=== PATIENT | female | born 1960 | race African-American/Black ===

== ENCOUNTER 2017-04-13 12:42 | Emergency (ER) | payer MEDICAID ==
[~2017-04-13] VITALS: Ht 152.4 cm; Wt 90.7 kg
[2017-04-13 12:48] VITALS: BP 171/98
== END 2017-04-13 13:17 | disposition home or self-care (01) ==
LOC: ER 12:42
DX: J02.9 Acute pharyngitis, unspecified (principal); L04.0 Acute lymphadenitis of face, head and neck; K52.9 Noninfective gastroenteritis and colitis, unspecified

== ENCOUNTER 2017-10-06 10:20 | Inpatient (IN) | payer MEDICAID ==
[~2017-10-06] VITALS: Ht 152.4 cm; Wt 100.1 kg
[2017-10-06] MEDS ORDERED: ASPirin 81 mg TAB PO ONE ×2 (10:45→13:00)
[2017-10-06 11:27] LABS: Basophils # (auto) 0 uL; Eosinophils # (auto) 0.2 uL; Lymphocytes # (auto) 1.4 uL; Monocytes # (auto) 0.3 uL; Red Cell Distribution Width 18.3 % (11.8-14.3)
[2017-10-06 11:30] LABS: Basophils % (auto) 0.7 % (0.0-2.0); Eosinophils % (auto) 4.2 % (0.0-7.0); Hematocrit 36.4 % (36.0-46.0); Hemoglobin 11.5 g/dL (12.2-16.2); Lymphocytes % (auto) 28.2 % (10.0-50.0); Mean Corpuscular Hemoglobin 24.9 pg (28.0-32.0); Mean Corpuscular Hgb Conc. 31.5 g/dL (32.0-36.0); Mean Corpuscular Volume 79.1 fL (80.0-100.0); Monocytes % (auto) 5.9 % (0.0-12.0); Neutrophils # (auto) 3.1 uL; Nucleated Red Blood Cells % 0.1 %; Platelet Count (auto) 385 10^3/uL (140-450); White Blood Cell 5.1 10^3/uL (4.4-10.8)
[2017-10-06 11:48] LABS: Magnesium 2.3 mg/dL (1.6-2.6)
[2017-10-06 11:50] LABS: Albumin 3.4 g/dL (3.4-5.0); Bilirubin, Total 0.2 mg/dL (0.2-1.0); Calcium 8.9 mg/dL (8.5-10.1); Potassium 3.6 mmol/L (3.5-5.1); Total Protein 7.9 g/dL (6.4-8.2)
[2017-10-06] MEDS ORDERED: HYDROcodone-ACET 5/325MG TAB PO PRN (12:15)
[2017-10-06] MEDS ORDERED: DEXTROSE (50%) 50ML SYRG IV PRN (12:15)
[2017-10-06] MEDS ORDERED: TEMAZEPAM 15 MG CAP PO PRN (12:15)
[2017-10-06] MEDS ORDERED: NITROGLYCERIN 0.4 MG SL TAB SL PRN (12:15)
[2017-10-06] MEDS ORDERED: MORPHINE SULFATE 4 MG/ML SYR/VIAL IV PRN (12:15)
[2017-10-06] MEDS ORDERED: ACETAMINOPHEN 500 MG TAB PO PRN (12:15)
[2017-10-06] MEDS ORDERED: LORazepam 0.5 MG TAB PO PRN (12:15)
[2017-10-06] MEDS ORDERED: PROMETHAZINE HCL 25 MG/ML 1ML IV PRN (12:15)
[2017-10-06] MEDS ORDERED: ALBUTEROL SULF 2.5 MG/0.5ML(0.5%) NEB SOLN NEB PRN (12:15)
[2017-10-06] MEDS ORDERED: ENOXAPARIN SOD 40 MG/0.4 ML SYRINGE SC ONE (13:00)
[2017-10-06] MEDS ORDERED: NITROGLYCERIN 0.2MG/HR TOPICAL PATCH TD ONE (13:00)
[2017-10-06] MEDS ORDERED: PANTOPRAZOLE 40 MG TAB PO ONE (13:00)
[2017-10-06] MEDS ORDERED: METOPROLOL TARTRATE 25 MG TAB PO ONE (13:00)
[2017-10-06] MEDS: SODIUM CHLORIDE 0.9% 1,000 ML IV SCH (13:23)
[2017-10-06 13:28] LABS: CRP High Sensitivity 0.67 mg/dL (< 0.3)
[2017-10-06] MEDS: amLODIPine BESYLATE 5 MG TAB PO SCH (14:27)
[2017-10-06] MEDS: ACCU-CHEK COMFORT CURVE STRIP VI SCH ×2 (17:30→22:27)
[2017-10-06] MEDS: InsuLIN REG 1unit/0.01ml Soln (100units/ml) SC SCH ×2 (17:30→22:00)
[2017-10-06] MEDS ORDERED: ALBUAER3 IN (18:35)
[2017-10-06] MEDS ORDERED: LANS30CA63 PO (18:35)
[2017-10-06] MEDS ORDERED: IRBE300T46 PO (18:35)
[2017-10-06] MEDS ORDERED: ACLI1AER2 IN (18:35)
[2017-10-06] MEDS ORDERED: HYDR25TA4 PO (18:35)
[2017-10-06] MEDS ORDERED: AMLO5TAB2 PO (18:35)
[2017-10-06 19:31] VITALS: BP 167/77
[2017-10-06 20:00] VITALS: BP 160/79
[2017-10-06] MEDS: MORPHINE SULFATE 4 MG/ML SYR/VIAL IV PRN (21:09)
[2017-10-06 22:00] VITALS: BP 160/79
[2017-10-06] MEDS ORDERED: ATORVASTATIN 20 MG TAB PO SCH (22:00)
[2017-10-06] MEDS: METOPROLOL TARTRATE 25 MG TAB PO SCH (22:27)
[2017-10-07] MEDS: SODIUM CHLORIDE 0.9% 1,000 ML IV SCH ×2 (01:21→14:46)
[2017-10-07 05:00] VITALS: BP 158/75
[2017-10-07] MEDS: MORPHINE SULFATE 4 MG/ML SYR/VIAL IV PRN (05:01)
[2017-10-07 06:47] LABS: Cholesterol 212 mg/dL (< 200); HDL Cholesterol 60 mg/dL (40-59); LDL Cholesterol 129 mg/dL (< 100); Triglycerides 116 mg/dL (< 150)
[2017-10-07] MEDS: InsuLIN REG 1unit/0.01ml Soln (100units/ml) SC SCH ×3 (06:48→17:00)
[2017-10-07] MEDS: ACCU-CHEK COMFORT CURVE STRIP VI SCH ×3 (06:49→17:00)
[2017-10-07 09:00] VITALS: BP 139/73
[2017-10-07] MEDS: amLODIPine BESYLATE 5 MG TAB PO SCH (09:27)
[2017-10-07] MEDS: METOPROLOL TARTRATE 25 MG TAB PO SCH (09:28)
[2017-10-07] MEDS ORDERED: NITROGLYCERIN 0.2MG/HR TOPICAL PATCH TD SCH (10:00)
[2017-10-07] MEDS ORDERED: PANTOPRAZOLE 40 MG TAB PO SCH (10:00)
[2017-10-07] MEDS ORDERED: ENOXAPARIN SOD 40 MG/0.4 ML SYRINGE SC SCH (10:00)
[2017-10-07] MEDS ORDERED: ASPirin 81 mg TAB PO SCH (10:00)
[2017-10-07 13:00] VITALS: BP 155/88
[2017-10-07 13:59] VITALS: BP 138/71
[2017-10-07 16:43] VITALS: BP 154/84
[2017-10-07 17:01] VITALS: BP 154/85
== END 2017-10-07 17:30 | disposition home or self-care (01) | DRG 201 ==
LOC: ER 10:20 → TELE 10:21 → TELE-CENTR 18:02
PROVIDERS: ADMIT Internal Medicine; ATTEND Internal Medicine
DX: I47.1 Supraventricular tachycardia (principal); I24.9 Acute ischemic heart disease, unspecified; D68.69 Other thrombophilia; E87.8 Other disorders of electrolyte and fluid balance, not elsewhere classified; E11.65 Type 2 diabetes mellitus with hyperglycemia; T50.2X5A Adverse effect of carbonic-anhydrase inhibitors, benzothiadiazides and other diuretics, initial encounter; E04.1 Nontoxic single thyroid nodule; I10 Essential (primary) hypertension; J44.9 Chronic obstructive pulmonary disease, unspecified; I16.0 Hypertensive urgency; Z93.2 Ileostomy status; Z90.710 Acquired absence of both cervix and uterus; Z90.49 Acquired absence of other specified parts of digestive tract; Z79.899 Other long term (current) drug therapy; Y92.89 Other specified places as the place of occurrence of the external cause; Z90.89 Acquired absence of other organs; Z87.891 Personal history of nicotine dependence; Z88.8 Allergy status to other drugs, medicaments and biological substances
CPT/HCPCS: 36415; 71046; 80053; 80061; 82550; 82962; 83036; 83735; 83880; 84439; 84443; 84484; 85025; 85379; 85652; 86141; 93005; 93306; 94761; 96360; 96372

== ENCOUNTER 2021-02-07 08:21 | Inpatient (IN) | payer MEDICAID ==
[~2021-02-07] VITALS: Ht 152.4 cm; Wt 110.0 kg
[~2021-02-07 08:21] MED LIST: ACLI1AER2 IN; ALBUAER3 IN; ASPI-543 PO; CETI10TA80 PO; EST0625T PO; FLUT110A INH; FURO40TA4 PO; IRBE300T43 PO; LANS30CA57 PO; METO25TA5 PO; POTA10TA51 PO
[2021-02-07 09:19] LABS: Basophils # (auto) 0.1 10 ^3/uL (0-0.2); Eosinophils # (auto) 0 10 ^3/uL (0-0.8)
[2021-02-07 09:20] LABS: Basophils % (auto) 0.5 % (0.0-2.0); Hematocrit 29.7 % (36.0-46.0); Hemoglobin 9.2 g/dL (12.2-16.2); Lymphocytes # (auto) 1.8 10 ^3/uL (0.4-5.4); Mean Corpuscular Hemoglobin 21.9 pg (28.0-32.0); Mean Corpuscular Hgb Conc. 31.1 g/dL (32.0-36.0); Mean Corpuscular Volume 70.4 fL (80.0-100.0); Monocytes # (auto) 1.3 10 ^3/uL (0-1.3); Monocytes % (auto) 9.4 % (0.0-12.0); Neutrophils # (auto) 10.7 10 ^3/uL (1.6-8.6); Neutrophils % (auto) 77.1 % (37.0-80.0); Nucleated Red Blood Cells % 0.2 %; Red Blood Cells 4.21 10^6/uL (4.0-5.20); White Blood Cell 13.9 10^3/uL (4.4-10.8)
[2021-02-07 09:28] LABS: Red Cell Distribution Width 20.7 % (11.8-14.3)
[2021-02-07 09:29] LABS: Anion Gap 8 (5-15); Calcium 8.9 mg/dL (8.5-10.1); Carbon Dioxide 27 mmol/L (21-32); Chloride 104 mmol/L (98-107); Glucose 226 mg/dL (74-106); Potassium 3.3 mmol/L (3.5-5.1); Sodium 139 mmol/L (136-145)
[2021-02-07] MEDS ORDERED: MORPHINE SULF INJ 2 MG/ML SYRINGE 1ML ONE (09:32)
[2021-02-07 09:42] LABS: Alanine Aminotransferase 29 U/L (13-56); Alkaline Phosphatase 118 U/L (45-117); Aspartate Aminotransferase 23 U/L (15-37); BUN/Creatinine Ratio 27.7; Bilirubin, Total 0.3 mg/dL (0.2-1.0); Blood Urea Nitrogen 33 mg/dL (7-18); GFR African American 59 mL/min; GFR Non-African American 49 mL/min; Total Protein 7.6 g/dL (6.4-8.2)
[2021-02-07] MEDS ORDERED: SODIUM CHLORIDE 0.9% 1,000 ML IV ONE (13:45)
[2021-02-07] MEDS ORDERED: FUROSEMIDE 40 MG/4 ML VIAL IV ONE (13:45)
[2021-02-07] MEDS ORDERED: SPIRONOLACTONE 25 MG TAB PO ONE (13:45)
[2021-02-07] MEDS ORDERED: POTASSIUM EFFERVESENT TAB 25 MEQ PO ONE (14:45)
[2021-02-07] MEDS ORDERED: NITROGLYCERIN 0.4 MG SL TAB SL PRN (14:45)
[2021-02-07] MEDS ORDERED: MORPHINE SULF INJ 2 MG/ML SYRINGE 1ML IV PRN ×2 (14:45→15:45)
[2021-02-07 15:28] LABS: INR 1.09 (0.9-1.15); Partial Thromboplastin Time 22.4 sec (23.0-31.2)
[2021-02-07] MEDS ORDERED: ACETAMINOPHEN 500 MG TAB PO PRN (15:45)
[2021-02-07] MEDS ORDERED: PROMETHAZINE HCL 25 MG/ML 1ML IV PRN (15:45)
[2021-02-07] MEDS ORDERED: levoFLOXacin 500MG 100 ML IV ONE (15:45)
[2021-02-07] MEDS ORDERED: ALBUTEROL SULF 2.5 MG/0.5ML(0.5%) NEB SOLN NEB PRN (15:45)
[2021-02-07] MEDS ORDERED: DEXTROSE (50%) 50ML SYRG IV PRN (15:45)
[2021-02-07] MEDS ORDERED: LACTULOSE 20Gm/30ML SOLN PO PRN (15:45)
[2021-02-07 16:29] LABS: Urine Bacteria FEW /hpf (None Seen); Urine Blood Negative /uL (Negative); Urine Specific Gravity 1.025 (1.001-1.035); Urine WBC 1 /hpf (0 - 5)
[2021-02-07 16:42] LABS: Alcohol, Urine < 3.0 mg/dL (0-10); Amphetamine Screen, Urine NEGATIVE (NEGATIVE); Barbiturate Scree,Urine NEGATIVE (NEGATIVE); Benzodiazephine Screen, Urine NEGATIVE (NEGATIVE); Cannabinoid Screen, Urine NEGATIVE (NEGATIVE); Cocaine Screen, Urine NEGATIVE (NEGATIVE); Phencyclidine Screen, Urine NEGATIVE (NEGATIVE)
[2021-02-07 16:50] LABS: Opiate Scree,Urine POSITIVE (NEGATIVE)
[2021-02-07] MEDS: InsuLIN REG 1unit/0.01ml Soln (100units/ml) SC SCH ×2 (17:00→22:07)
[2021-02-07] MEDS: ACCU-CHEK COMFORT CURVE STRIP VI SCH ×2 (17:34→21:59)
[2021-02-07 18:00] VITALS: BP 109/85
[2021-02-07 18:03] VITALS: BP 109/85
[2021-02-07] MEDS: IPRATROPIUM BROM 0.5 MG/2.5ML INH SOL NEB SCH (19:10)
[2021-02-07] MEDS: ALBUTEROL SULF 2.5 MG/0.5ML(0.5%) NEB SOLN NEB SCH (19:10)
[2021-02-07] MEDS ORDERED: SUCR1TAB PO (19:11)
[2021-02-07] MEDS ORDERED: LEVO25TA6 PO (19:11)
[2021-02-07] MEDS ORDERED: GLIP5TAB12 PO (19:11)
[2021-02-07] MEDS ORDERED: BECL80AE11 IN (19:11)
[2021-02-07] MEDS ORDERED: ATOR20TA50 PO (19:11)
[2021-02-07] MEDS ORDERED: POM (19:14)
[2021-02-07 21:09] VITALS: BP 109/85
[2021-02-07 21:55] VITALS: BP 124/71
[2021-02-07] MEDS: CARVEDILOL 3.125 MG TAB PO SCH (21:57)
[2021-02-07] MEDS: SODIUM CHLOR 0.9% PF (SALINE LOCK) 10ML VIAL/SYR IV SCH (21:58)
[2021-02-07] MEDS: ATORVASTATIN 20 MG TAB PO SCH (21:58)
[2021-02-07] MEDS: traMADol HCL 50 MG TAB PO PRN (21:58)
[2021-02-07] MEDS: APIXABAN 5 MG TAB PO SCH (21:58)
[2021-02-07] MEDS: FAMOTIDINE 20 MG TAB PO SCH (21:58)
[2021-02-07] MEDS: CLINDAMYCIN 600MG IV 50 ML IV SCH (21:59)
[2021-02-08] MEDS: IPRATROPIUM BROM 0.5 MG/2.5ML INH SOL NEB SCH ×4 (00:18→18:46)
[2021-02-08] MEDS: ALBUTEROL SULF 2.5 MG/0.5ML(0.5%) NEB SOLN NEB SCH ×4 (00:18→18:46)
[2021-02-08 05:01] VITALS: BP 105/47
[2021-02-08] MEDS: SODIUM CHLOR 0.9% PF (SALINE LOCK) 10ML VIAL/SYR IV SCH ×3 (05:51→22:03)
[2021-02-08] MEDS: CLINDAMYCIN 600MG IV 50 ML IV SCH ×3 (05:51→22:02)
[2021-02-08] MEDS: ACCU-CHEK COMFORT CURVE STRIP VI SCH ×4 (06:49→22:17)
[2021-02-08] MEDS: InsuLIN REG 1unit/0.01ml Soln (100units/ml) SC SCH ×4 (06:50→22:18)
[2021-02-08 09:00] VITALS: BP 108/68
[2021-02-08] MEDS: CARVEDILOL 3.125 MG TAB PO SCH ×2 (09:47→22:03)
[2021-02-08] MEDS: FUROSEMIDE 40 MG/4 ML VIAL IV SCH ×2 (09:47→10:04)
[2021-02-08] MEDS: ENALAPRIL MALEATE 2.5 MG TAB PO SCH (09:48)
[2021-02-08] MEDS: levoFLOXacin 500MG 100 ML IV SCH (09:55)
[2021-02-08] MEDS: ASPirin 81 mg TAB PO SCH (09:55)
[2021-02-08] MEDS: APIXABAN 5 MG TAB PO SCH ×2 (09:55→22:03)
[2021-02-08] MEDS: FAMOTIDINE 20 MG TAB PO SCH ×2 (09:55→22:02)
[2021-02-08] MEDS: POTASSIUM CHL 20 Meq TABLET PO SCH (09:55)
[2021-02-08] MEDS ORDERED: APIXABAN 5 MG TAB PO ONE (11:45)
[2021-02-08 13:00] VITALS: BP 99/45
[2021-02-08 17:00] VITALS: BP 95/55
[2021-02-08 22:00] VITALS: BP 137/69
[2021-02-08] MEDS: ATORVASTATIN 20 MG TAB PO SCH (22:02)
[2021-02-09] MEDS: IPRATROPIUM BROM 0.5 MG/2.5ML INH SOL NEB SCH ×5 (00:26→18:29)
[2021-02-09] MEDS: ALBUTEROL SULF 2.5 MG/0.5ML(0.5%) NEB SOLN NEB SCH ×5 (00:26→18:29)
[2021-02-09 05:00] VITALS: BP 134/70
[2021-02-09] MEDS: CLINDAMYCIN 600MG IV 50 ML IV SCH ×3 (05:58→21:05)
[2021-02-09] MEDS: SODIUM CHLOR 0.9% PF (SALINE LOCK) 10ML VIAL/SYR IV SCH ×3 (05:58→21:05)
[2021-02-09] MEDS: ACCU-CHEK COMFORT CURVE STRIP VI SCH ×4 (06:46→21:22)
[2021-02-09] MEDS: InsuLIN REG 1unit/0.01ml Soln (100units/ml) SC SCH ×4 (06:46→21:21)
[2021-02-09] MEDS: POTASSIUM CHL 20 Meq TABLET PO SCH (08:48)
[2021-02-09] MEDS: FUROSEMIDE 40 MG/4 ML VIAL IV SCH (08:48)
[2021-02-09] MEDS: ASPirin 81 mg TAB PO SCH (08:49)
[2021-02-09] MEDS: FAMOTIDINE 20 MG TAB PO SCH ×2 (08:49→21:21)
[2021-02-09] MEDS: APIXABAN 5 MG TAB PO SCH ×2 (08:49→21:04)
[2021-02-09] MEDS: levoFLOXacin 500MG 100 ML IV SCH (08:49)
[2021-02-09] MEDS: traMADol HCL 50 MG TAB PO PRN (08:56)
[2021-02-09] MEDS: CARVEDILOL 3.125 MG TAB PO SCH ×2 (08:56→22:06)
[2021-02-09] MEDS: ENALAPRIL MALEATE 2.5 MG TAB PO SCH (08:56)
[2021-02-09 09:00] VITALS: BP 137/84
[2021-02-09 13:00] VITALS: BP 122/67
[2021-02-09 17:00] VITALS: BP 127/69
[2021-02-09] MEDS: ATORVASTATIN 20 MG TAB PO SCH (21:04)
[2021-02-09 22:00] VITALS: BP 125/69
[2021-02-10] MEDS: IPRATROPIUM BROM 0.5 MG/2.5ML INH SOL NEB SCH ×4 (00:22→19:50)
[2021-02-10] MEDS: ALBUTEROL SULF 2.5 MG/0.5ML(0.5%) NEB SOLN NEB SCH ×4 (00:22→19:50)
[2021-02-10] MEDS: SODIUM CHLOR 0.9% PF (SALINE LOCK) 10ML VIAL/SYR IV SCH ×2 (05:48→12:35)
[2021-02-10] MEDS: CLINDAMYCIN 600MG IV 50 ML IV SCH ×2 (05:48→13:29)
[2021-02-10 06:00] VITALS: BP 119/58
[2021-02-10] MEDS: ACCU-CHEK COMFORT CURVE STRIP VI SCH ×3 (06:28→16:42)
[2021-02-10] MEDS: InsuLIN REG 1unit/0.01ml Soln (100units/ml) SC SCH ×3 (06:28→16:42)
[2021-02-10 09:01] VITALS: BP 144/66
[2021-02-10] MEDS: levoFLOXacin 500MG 100 ML IV SCH (09:15)
[2021-02-10] MEDS: ASPirin 81 mg TAB PO SCH (09:15)
[2021-02-10] MEDS: ENALAPRIL MALEATE 2.5 MG TAB PO SCH (09:16)
[2021-02-10] MEDS: FAMOTIDINE 20 MG TAB PO SCH (09:16)
[2021-02-10] MEDS: FUROSEMIDE 40 MG/4 ML VIAL IV SCH (09:17)
[2021-02-10] MEDS: CARVEDILOL 3.125 MG TAB PO SCH (09:18)
[2021-02-10] MEDS: APIXABAN 5 MG TAB PO SCH (09:18)
[2021-02-10] MEDS: POTASSIUM CHL 20 Meq TABLET PO SCH (09:19)
[2021-02-10 10:49] VITALS: BP 140/60
[2021-02-10 12:26] VITALS: BP 113/65
== END 2021-02-10 17:15 | disposition home or self-care (01) | DRG 720 ==
LOC: ER 08:21 → EDBD 08:21 → TELE-WESTW 14:45 → ER 17:37
PROVIDERS: ADMIT Internal Medicine; ATTEND Family Medicine
DX: A41.9 Sepsis, unspecified organism (principal); I26.99 Other pulmonary embolism without acute cor pulmonale; J96.01 Acute respiratory failure with hypoxia; I50.43 Acute on chronic combined systolic (congestive) and diastolic (congestive) heart failure; J15.6 Pneumonia due to other Gram-negative bacteria; E11.21 Type 2 diabetes mellitus with diabetic nephropathy; I11.0 Hypertensive heart disease with heart failure; Z20.822 Contact with and (suspected) exposure to COVID-19; J44.0 Chronic obstructive pulmonary disease with (acute) lower respiratory infection; E44.1 Mild protein-calorie malnutrition; D63.8 Anemia in other chronic diseases classified elsewhere; E11.22 Type 2 diabetes mellitus with diabetic chronic kidney disease; E87.6 Hypokalemia; I25.10 Atherosclerotic heart disease of native coronary artery without angina pectoris; E11.65 Type 2 diabetes mellitus with hyperglycemia; E66.9 Obesity, unspecified; N18.9 Chronic kidney disease, unspecified; J44.1 Chronic obstructive pulmonary disease with (acute) exacerbation; J98.11 Atelectasis; Z95.0 Presence of cardiac pacemaker; Z93.3 Colostomy status; Z79.899 Other long term (current) drug therapy; Z79.891 Long term (current) use of opiate analgesic; Z79.01 Long term (current) use of anticoagulants; Z90.49 Acquired absence of other specified parts of digestive tract; Z90.710 Acquired absence of both cervix and uterus; Z87.891 Personal history of nicotine dependence; Z80.3 Family history of malignant neoplasm of breast; Z80.1 Family history of malignant neoplasm of trachea, bronchus and lung; Z91.040 Latex allergy status; Z88.8 Allergy status to other drugs, medicaments and biological substances; Z79.82 Long term (current) use of aspirin; Z68.42 Body mass index [BMI] 45.0-49.9, adult; E03.9 Hypothyroidism, unspecified; E78.5 Hyperlipidemia, unspecified
CPT/HCPCS: 36415; 71046; 80053; 80307; 81001; 82550; 82962; 83036; 83735; 83880; 84443; 84484; 85025; 85049; 85379; 85610; 85652; 85730; 86141; 87081; 87426; 93005; 93306; 94640; 96365; 96375; G0378; J1815; J1956; J3490

== ENCOUNTER 2022-02-23 12:36 | Inpatient (IN) | payer MEDICAID ==
[~2022-02-23] VITALS: Ht 162.6 cm; Wt 109.0 kg
[~2022-02-23 12:36] MED LIST changes: -ASPI-543 PO; +ATOR20TA50 PO; +BECL80AE11 IN; -CETI10TA80 PO; -EST0625T PO; -FLUT110A INH; +GLIP5TAB12 PO; -IRBE300T43 PO; +LEVO25TA6 PO; +POM; -POTA10TA51 PO; +SUCR1TAB PO
[2022-02-23] MEDS ORDERED: methylPREDNISolone SOD SUCC 125 MG/2 ML VL IV ONE (13:00)
[2022-02-23] MEDS ORDERED: IOHEXOL 350 MG/ML 100ML IJ ONE ×2 (13:20→16:17)
[2022-02-23 14:28] LABS: Calcium 8.8 mg/dL (8.5-10.1); Potassium 4.5 mmol/L (3.5-5.1)
[2022-02-23 14:33] LABS: BUN/Creatinine Ratio 14.6; Bilirubin, Total 0.2 mg/dL (0.2-1.0); Magnesium 2.2 mg/dL (1.6-2.6); Total Protein 7.9 g/dL (6.4-8.2)
[2022-02-23 15:47] LABS: Basophils # (auto) 0.1 10 ^3/uL (0-0.2); Eosinophils # (auto) 0.1 10 ^3/uL (0-0.8); Eosinophils % (auto) 1.5 % (0.0-7.0); Hematocrit 31.3 % (36.0-46.0); Hemoglobin 9.4 g/dL (12.2-16.2); Lymphocytes # (auto) 1.3 10 ^3/uL (0.4-5.4); Lymphocytes % (auto) 23.3 % (10.0-50.0); Mean Corpuscular Hemoglobin 20.7 pg (28.0-32.0); Mean Corpuscular Hgb Conc. 30.1 g/dL (32.0-36.0); Mean Corpuscular Volume 68.7 fL (80.0-100.0); Monocytes # (auto) 0.4 10 ^3/uL (0-1.3); Monocytes % (auto) 7.7 % (0.0-12.0); Neutrophils # (auto) 3.6 10 ^3/uL (1.6-8.6); Neutrophils % (auto) 66.5 % (37.0-80.0); Nucleated Red Blood Cells % 0.2 %; Red Blood Cells 4.55 10^6/uL (4.0-5.20); White Blood Cell 5.5 10^3/uL (4.4-10.8)
[2022-02-23 15:50] LABS: Red Cell Distribution Width 21.1 % (11.8-14.3)
[2022-02-23 21:04] LABS: Urine Bacteria NONE SEEN /hpf (None Seen); Urine Blood Negative /uL (Negative); Urine Mucus FEW (None Seen); Urine WBC 1 /hpf (0 - 5)
[2022-02-23 21:11] LABS: Urine Specific Gravity > 1.050 (1.001-1.035)
[2022-02-23] MEDS ORDERED: ACETAMINOPHEN 325 MG TAB PO PRN (21:15)
[2022-02-23] MEDS ORDERED: NITROGLYCERIN 0.4 MG SL TAB SL PRN ×2 (21:15→23:00)
[2022-02-23] MEDS ORDERED: MORPHINE SULFATE INJ 2 MG/ml SYRG IV PRN ×2 (21:15→23:00)
[2022-02-23] MEDS ORDERED: DEXTROSE (50%) 50ML SYRG IV PRN (21:15)
[2022-02-23] MEDS ORDERED: ONDANSETRON HCL 4 MG/2 ML VIAL IV PRN (21:15)
[2022-02-23] MEDS ORDERED: ALBUTEROL SULF 2.5 MG/0.5ML(0.5%) NEB SOLN NEB PRN (21:15)
[2022-02-23] MEDS ORDERED: cloNIDine HCL 0.1 MG TAB PO PRN (21:15)
[2022-02-23 21:34] VITALS: BP 164/70
[2022-02-23] MEDS ORDERED: TEMAZEPAM 15 MG CAP PO PRN (22:00)
[2022-02-23] MEDS: ATORVASTATIN 20 MG TAB PO SCH (22:21)
[2022-02-23] MEDS: ACCU-CHEK COMFORT CURVE STRIP VI SCH (22:26)
[2022-02-23] MEDS: InsuLIN REG 1unit/0.01ml Soln (100units/ml) SC SCH (22:32)
[2022-02-24 04:39] LABS: Basophils # (auto) 0 10 ^3/uL (0-0.2); Eosinophils # (auto) 0 10 ^3/uL (0-0.8); Lymphocytes # (auto) 0.6 10 ^3/uL (0.4-5.4)
[2022-02-24 04:42] LABS: Basophils % (auto) 0.3 % (0.0-2.0); Hemoglobin 9.3 g/dL (12.2-16.2); Mean Corpuscular Hemoglobin 20.5 pg (28.0-32.0); Mean Corpuscular Hgb Conc. 29.8 g/dL (32.0-36.0); Mean Corpuscular Volume 68.6 fL (80.0-100.0); Monocytes # (auto) 0.1 10 ^3/uL (0-1.3); Monocytes % (auto) 0.7 % (0.0-12.0); Neutrophils # (auto) 6.4 10 ^3/uL (1.6-8.6); Red Blood Cells 4.53 10^6/uL (4.0-5.20)
[2022-02-24 04:46] LABS: Red Cell Distribution Width 21.3 % (11.8-14.3)
[2022-02-24] MEDS: InsuLIN REG 1unit/0.01ml Soln (100units/ml) SC SCH ×4 (07:32→21:49)
[2022-02-24] MEDS: LEVOTHYROXINE SODIUM 25 MCG TAB PO SCH (07:32)
[2022-02-24] MEDS: ACCU-CHEK COMFORT CURVE STRIP VI SCH ×4 (07:33→22:00)
[2022-02-24 09:00] VITALS: BP 145/57
[2022-02-24] MEDS ORDERED: IRBE300T43 PO (09:42)
[2022-02-24] MEDS ORDERED: APIX5TAB PO (09:42)
[2022-02-24] MEDS ORDERED: CETI-120 PO (09:42)
[2022-02-24] MEDS ORDERED: DRON400T PO (09:42)
[2022-02-24] MEDS ORDERED: LEVO13CA PO (09:42)
[2022-02-24] MEDS ORDERED: FAMO40TA7 PO (09:42)
[2022-02-24] MEDS ORDERED: DIPH25TA31 PO (09:42)
[2022-02-24] MEDS ORDERED: ENOXAPARIN SOD 40 MG/0.4 ML SYRINGE SC SCH (10:00)
[2022-02-24] MEDS: FUROSEMIDE 40 MG TAB PO SCH (10:46)
[2022-02-24 13:00] VITALS: BP 136/70
[2022-02-24 17:00] VITALS: BP 137/62
[2022-02-24] MEDS: ATORVASTATIN 20 MG TAB PO SCH (21:43)
[2022-02-24] MEDS: APIXABAN 5 MG TAB PO SCH (21:53)
[2022-02-24 22:00] VITALS: BP 132/84
[2022-02-25 05:00] VITALS: BP 155/78
[2022-02-25] MEDS: InsuLIN REG 1unit/0.01ml Soln (100units/ml) SC SCH ×2 (06:31→11:30)
[2022-02-25] MEDS: ACCU-CHEK COMFORT CURVE STRIP VI SCH ×2 (06:31→12:33)
[2022-02-25] MEDS: LEVOTHYROXINE SODIUM 25 MCG TAB PO SCH (06:33)
[2022-02-25 07:02] LABS: % Iron Saturation 5.9 % (15-50)
[2022-02-25 08:00] VITALS: BP 103/66
[2022-02-25 09:00] VITALS: BP 131/65
[2022-02-25] MEDS: APIXABAN 5 MG TAB PO SCH (09:59)
[2022-02-25] MEDS ORDERED: ALBUTEROL SULF 2.5 MG/0.5ML(0.5%) NEB SOLN NEB PRN (10:00)
[2022-02-25] MEDS: FUROSEMIDE 40 MG TAB PO SCH (10:00)
[2022-02-25] MEDS ORDERED: SODIUM FERR GLUC 62.5MG/5ML 125 MG in SODIUM CHL 0.9% 100 ML IV ONE (12:15)
[2022-02-25 16:34] VITALS: BP 128/62
== END 2022-02-25 17:20 | disposition home or self-care (01) | DRG 663 ==
LOC: ER 12:36 → TELE 22:49 → TELE-CENTR 02-24 08:04
PROVIDERS: ADMIT Nurse Practitioner; ATTEND Internal Medicine Nephrology
DX: D50.9 Iron deficiency anemia, unspecified (principal); E87.2 Acidosis; E11.22 Type 2 diabetes mellitus with diabetic chronic kidney disease; J44.1 Chronic obstructive pulmonary disease with (acute) exacerbation; D56.9 Thalassemia, unspecified; E03.9 Hypothyroidism, unspecified; E66.01 Morbid (severe) obesity due to excess calories; I48.91 Unspecified atrial fibrillation; E78.5 Hyperlipidemia, unspecified; Z20.822 Contact with and (suspected) exposure to COVID-19; N18.31 Chronic kidney disease, stage 3a; J98.11 Atelectasis; I12.9 Hypertensive chronic kidney disease with stage 1 through stage 4 chronic kidney disease, or unspecified chronic kidney disease; I25.10 Atherosclerotic heart disease of native coronary artery without angina pectoris; M19.90 Unspecified osteoarthritis, unspecified site; K52.9 Noninfective gastroenteritis and colitis, unspecified; Z68.41 Body mass index [BMI] 40.0-44.9, adult; Z80.1 Family history of malignant neoplasm of trachea, bronchus and lung; Z80.3 Family history of malignant neoplasm of breast; Z86.711 Personal history of pulmonary embolism; Z87.891 Personal history of nicotine dependence; Z90.710 Acquired absence of both cervix and uterus; Z93.2 Ileostomy status; Z95.0 Presence of cardiac pacemaker; Z90.49 Acquired absence of other specified parts of digestive tract; Z88.8 Allergy status to other drugs, medicaments and biological substances; Z91.040 Latex allergy status
CPT/HCPCS: 36415; 71046; 71275; 72131; 74176; 80053; 81001; 82962; 83036; 83540; 83550; 83735; 83880; 84439; 84443; 84484; 85025; 85379; 93005; 93306; 96374; G0378; J1815

== ENCOUNTER 2022-10-29 23:15 | Inpatient (IN) | payer MEDICAID ==
[~2022-10-29] VITALS: Ht 160 cm; Wt 115.9 kg
[~2022-10-29 23:15] MED LIST changes: +APIX5TAB PO; +CETI-120 PO; +DIPH25TA31 PO; +DRON400T PO; +FAMO40TA7 PO; -FURO40TA4 PO; +IRBE300T43 PO; +LEVO13CA PO; -LEVO25TA6 PO; -POM; -SUCR1TAB PO
[2022-10-30] LABS: Basophils # (auto) 0.1 10 ^3/uL (0-0.2); Eosinophils # (auto) 0.1 10 ^3/uL (0-0.8); Monocytes # (auto) 0.6 10 ^3/uL (0-1.3); Nucleated Red Blood Cells % 0.1 %
[2022-10-30 00:02] LABS: Basophils % (auto) 1.2 % (0.0-2.0); Eosinophils % (auto) 1.9 % (0.0-7.0); Hematocrit 34.9 % (36.0-46.0); Hemoglobin 11.5 g/dL (12.2-16.2); Lymphocytes # (auto) 1.6 10 ^3/uL (0.4-5.4); Lymphocytes % (auto) 22.4 % (10.0-50.0); Mean Corpuscular Hemoglobin 26.3 pg (28.0-32.0); Mean Corpuscular Hgb Conc. 32.8 g/dL (32.0-36.0); Mean Corpuscular Volume 80.3 fL (80.0-100.0); Monocytes % (auto) 8.6 % (0.0-12.0); Neutrophils # (auto) 4.7 10 ^3/uL (1.6-8.6); Neutrophils % (auto) 65.9 % (37.0-80.0); Red Blood Cells 4.35 10^6/uL (4.0-5.20); White Blood Cell 7.1 10^3/uL (4.4-10.8)
[2022-10-30 00:21] LABS: Magnesium 1.9 mg/dL (1.6-2.6); Potassium 3.9 mmol/L (3.5-5.1)
[2022-10-30 00:23] LABS: Bilirubin, Total 0.1 mg/dL (0.2-1.0); Total Protein 7.9 g/dL (6.4-8.2)
[2022-10-30 00:26] LABS: INR 1.03 (0.9-1.15); Partial Thromboplastin Time 33.3 sec (24.6-33.4)
[2022-10-30 01:56] LABS: Urine Bacteria NONE SEEN /hpf (None Seen); Urine Blood Negative /uL (Negative); Urine Mucus FEW (None Seen); Urine WBC <1 /hpf (0 - 5)
[2022-10-30] MEDS ORDERED: IPRATROPIUM BROM 0.5 MG/2.5ML INH SOL NEB ONE ×2 (02:15→06:15)
[2022-10-30] MEDS ORDERED: ALBUTEROL SULF 2.5 MG/0.5ML(0.5%) NEB SOLN NEB ONE ×2 (02:15→06:15)
[2022-10-30] MEDS ORDERED: DexAMETHasone SOD PHOS 10MG/1ML VIAL INJ IV ONE (02:15)
[2022-10-30] MEDS ORDERED: ENOXAPARIN SOD 100 MG/1 ML SYRINGE SC ONE (05:15)
[2022-10-30] MEDS ORDERED: MORPHINE SULFATE 4 MG/ML SYR/VIAL IV ONE ×2 (06:15)
[2022-10-30] MEDS ORDERED: ONDANSETRON HCL 4 MG/2 ML VIAL IV ONE ×2 (06:15)
[2022-10-30] MEDS ORDERED: ALBUTEROL SULF 2.5 MG/0.5ML(0.5%) NEB SOLN NEB PRN ×2 (07:00→12:00)
[2022-10-30] MEDS ORDERED: ONDANSETRON HCL 4 MG/2 ML VIAL IV PRN (07:00)
[2022-10-30] MEDS ORDERED: DOCUSATE SOD 100 MG CAP PO PRN (07:00)
[2022-10-30] MEDS ORDERED: HYDROcodone-ACET 5/325MG TAB PO PRN (07:00)
[2022-10-30] MEDS ORDERED: MORPHINE SULFATE INJ 2 MG/ml SYRG IV PRN (07:00)
[2022-10-30] MEDS ORDERED: ACETAMINOPHEN 325 MG TAB PO PRN (07:00)
[2022-10-30 07:35] LABS: Basophils # (auto) 0 10 ^3/uL (0-0.2); Eosinophils # (auto) 0 10 ^3/uL (0-0.8); Eosinophils % (auto) 0.2 % (0.0-7.0); Hematocrit 36.2 % (36.0-46.0); Hemoglobin 11.4 g/dL (12.2-16.2); Lymphocytes # (auto) 0.9 10 ^3/uL (0.4-5.4); Monocytes # (auto) 0.1 10 ^3/uL (0-1.3); Neutrophils # (auto) 6.7 10 ^3/uL (1.6-8.6); Nucleated Red Blood Cells % 0.2 %; Red Cell Distribution Width 19.7 % (11.8-14.3); White Blood Cell 7.8 10^3/uL (4.4-10.8)
[2022-10-30 07:38] LABS: Basophils % (auto) 0.4 % (0.0-2.0); Mean Corpuscular Hemoglobin 25.9 pg (28.0-32.0); Mean Corpuscular Hgb Conc. 31.5 g/dL (32.0-36.0); Mean Corpuscular Volume 82.3 fL (80.0-100.0); Monocytes % (auto) 1.5 % (0.0-12.0); Neutrophils % (auto) 85.9 % (37.0-80.0); Red Blood Cells 4.39 10^6/uL (4.0-5.20)
[2022-10-30 07:50] LABS: Calcium 8.4 mg/dL (8.5-10.1); Potassium 4.8 mmol/L (3.5-5.1)
[2022-10-30 07:54] LABS: BUN/Creatinine Ratio 13.4 (10.0-20.0); Bilirubin, Total 0.1 mg/dL (0.2-1.0); Total Protein 7.4 g/dL (6.4-8.2)
[2022-10-30 08:18] VITALS: BP 137/65
[2022-10-30] MEDS ORDERED: IPRATROPIUM BROM 0.5 MG/2.5ML INH SOL NEB PRN (12:00)
[2022-10-30] MEDS ORDERED: PANTOPRAZOLE 40 MG/10 ML VIAL INJ IV ONE (12:00)
[2022-10-30] MEDS ORDERED: DEXTROSE (50%) 50ML SYRG IV PRN (12:00)
[2022-10-30 12:17] LABS: Cholesterol 158 mg/dL (< 200)
[2022-10-30 12:20] LABS: HDL Cholesterol 59 mg/dL (40-59); LDL Cholesterol 91 mg/dL (< 100); Triglycerides 52 mg/dL (< 150)
[2022-10-30] MEDS: ALBUTEROL SULF 2.5 MG/0.5ML(0.5%) NEB SOLN NEB SCH ×2 (12:34→18:43)
[2022-10-30] MEDS: IPRATROPIUM BROM 0.5 MG/2.5ML INH SOL NEB SCH ×2 (12:34→18:43)
[2022-10-30 12:47] LABS: Alcohol, Urine < 3.0 mg/dL (0-10); Amphetamine Screen, Urine NEGATIVE (NEGATIVE); Barbiturate Scree,Urine NEGATIVE (NEGATIVE); Benzodiazephine Screen, Urine NEGATIVE (NEGATIVE); Cannabinoid Screen, Urine NEGATIVE (NEGATIVE); Cocaine Screen, Urine NEGATIVE (NEGATIVE); Opiate Scree,Urine POSITIVE (NEGATIVE); Phencyclidine Screen, Urine NEGATIVE (NEGATIVE)
[2022-10-30] MEDS: ASPirin 81 mg TAB PO SCH (15:16)
[2022-10-30] MEDS: InsuLIN REG 1unit/0.01ml Soln (100units/ml) SC SCH ×2 (17:00→22:00)
[2022-10-30] MEDS: ACCU-CHEK COMFORT CURVE STRIP VI SCH ×2 (17:00→22:28)
[2022-10-30] MEDS ORDERED: ATORVASTATIN 20 MG TAB PO SCH (22:00)
[2022-10-30] MEDS: ENOXAPARIN SOD 60 MG/0.6 ML SYRINGE SC SCH (22:37)
[2022-10-30] MEDS: ATORVASTATIN 20 MG TAB PO SCH (22:38)
[2022-10-30] MEDS: METOPROLOL TARTRATE 25 MG TAB PO SCH (22:38)
[2022-10-31] MEDS: ALBUTEROL SULF 2.5 MG/0.5ML(0.5%) NEB SOLN NEB SCH ×6 (00:14→23:26)
[2022-10-31] MEDS: IPRATROPIUM BROM 0.5 MG/2.5ML INH SOL NEB SCH ×6 (00:14→23:26)
[2022-10-31 05:15] LABS: Eosinophils # (auto) 0 10 ^3/uL (0-0.8); Hemoglobin 11.1 g/dL (12.2-16.2); Lymphocytes # (auto) 0.9 10 ^3/uL (0.4-5.4); Monocytes # (auto) 0.6 10 ^3/uL (0-1.3); Nucleated Red Blood Cells % 0.1 %; Red Cell Distribution Width 19.4 % (11.8-14.3)
[2022-10-31 05:17] LABS: Basophils # (auto) 0 10 ^3/uL (0-0.2); Basophils % (auto) 0.3 % (0.0-2.0); Hematocrit 34.5 % (36.0-46.0); Lymphocytes % (auto) 9.8 % (10.0-50.0); Mean Corpuscular Hemoglobin 26.1 pg (28.0-32.0); Mean Corpuscular Hgb Conc. 32.3 g/dL (32.0-36.0); Mean Corpuscular Volume 80.9 fL (80.0-100.0); Monocytes % (auto) 6.7 % (0.0-12.0); Neutrophils % (auto) 83.2 % (37.0-80.0); Red Blood Cells 4.26 10^6/uL (4.0-5.20); White Blood Cell 9.6 10^3/uL (4.4-10.8)
[2022-10-31 05:34] LABS: Potassium 4.2 mmol/L (3.5-5.1)
[2022-10-31 05:46] LABS: BUN/Creatinine Ratio 17.5 (10.0-20.0); Bilirubin, Total 0.2 mg/dL (0.2-1.0); Calcium 8.7 mg/dL (8.5-10.1); Total Protein 7.6 g/dL (6.4-8.2)
[2022-10-31] MEDS: ACCU-CHEK COMFORT CURVE STRIP VI SCH ×4 (06:48→22:07)
[2022-10-31] MEDS: InsuLIN REG 1unit/0.01ml Soln (100units/ml) SC SCH ×4 (06:48→22:00)
[2022-10-31] MEDS ORDERED: LEVOTHYROXINE SODIUM PO SCH (10:00)
[2022-10-31] MEDS: PANTOPRAZOLE 40 MG/10 ML VIAL INJ IV SCH ×2 (10:00→10:06)
[2022-10-31] MEDS: METOPROLOL TARTRATE 25 MG TAB PO SCH ×2 (10:54→22:17)
[2022-10-31] MEDS: ENOXAPARIN SOD 60 MG/0.6 ML SYRINGE SC SCH ×2 (10:54→22:17)
[2022-10-31] MEDS: LOSARTAN POTASSIUM 50 MG TAB PO SCH (10:54)
[2022-10-31] MEDS: ASPirin 81 mg TAB PO SCH (10:54)
[2022-10-31 22:00] VITALS: BP 157/102
[2022-10-31] MEDS: ATORVASTATIN 20 MG TAB PO SCH (22:17)
[2022-10-31] MEDS ORDERED: BUDE1AER4 PO (22:42)
[2022-10-31] MEDS ORDERED: ACLI1AER2 PO (22:42)
[2022-11-01 05:00] VITALS: BP 149/68
[2022-11-01] MEDS: ACCU-CHEK COMFORT CURVE STRIP VI SCH ×2 (06:12→11:44)
[2022-11-01] MEDS: InsuLIN REG 1unit/0.01ml Soln (100units/ml) SC SCH ×2 (06:12→11:30)
[2022-11-01] MEDS: IPRATROPIUM BROM 0.5 MG/2.5ML INH SOL NEB SCH ×2 (07:16→12:22)
[2022-11-01] MEDS: ALBUTEROL SULF 2.5 MG/0.5ML(0.5%) NEB SOLN NEB SCH ×2 (07:16→12:22)
[2022-11-01 08:00] VITALS: BP 132/94
[2022-11-01 09:00] VITALS: BP 132/94
[2022-11-01] MEDS: PANTOPRAZOLE 40 MG/10 ML VIAL INJ IV SCH (09:28)
[2022-11-01] MEDS: LOSARTAN POTASSIUM 50 MG TAB PO SCH (09:28)
[2022-11-01] MEDS: ENOXAPARIN SOD 60 MG/0.6 ML SYRINGE SC SCH (09:29)
[2022-11-01] MEDS: ASPirin 81 mg TAB PO SCH (09:29)
[2022-11-01] MEDS: METOPROLOL TARTRATE 25 MG TAB PO SCH (09:29)
[2022-11-01 13:00] VITALS: BP 140/72
== END 2022-11-01 16:25 | disposition left against medical advice (07) | DRG 198 ==
LOC: EDBD 23:15 → ER 23:15 → TELE 10-30 11:46 → TELE-CENTR 10-31 21:16
PROVIDERS: ADMIT Registered Nurse; ATTEND Family Medicine
DX: R07.89 Other chest pain (principal); I25.10 Atherosclerotic heart disease of native coronary artery without angina pectoris; I13.0 Hypertensive heart and chronic kidney disease with heart failure and stage 1 through stage 4 chronic kidney disease, or unspecified chronic kidney disease; E11.22 Type 2 diabetes mellitus with diabetic chronic kidney disease; I50.32 Chronic diastolic (congestive) heart failure; Z20.822 Contact with and (suspected) exposure to COVID-19; E78.5 Hyperlipidemia, unspecified; E66.01 Morbid (severe) obesity due to excess calories; J44.9 Chronic obstructive pulmonary disease, unspecified; F41.9 Anxiety disorder, unspecified; K21.9 Gastro-esophageal reflux disease without esophagitis; I48.91 Unspecified atrial fibrillation; N18.9 Chronic kidney disease, unspecified; E89.0 Postprocedural hypothyroidism; Z86.711 Personal history of pulmonary embolism; Z88.6 Allergy status to analgesic agent; Z80.1 Family history of malignant neoplasm of trachea, bronchus and lung; Z79.01 Long term (current) use of anticoagulants; Z80.3 Family history of malignant neoplasm of breast; Z90.49 Acquired absence of other specified parts of digestive tract; Z90.710 Acquired absence of both cervix and uterus; Z68.42 Body mass index [BMI] 45.0-49.9, adult
CPT/HCPCS: 36415; 80053; 80061; 80307; 81001; 82962; 83036; 83735; 83880; 84443; 84484; 85025; 85610; 85730; 87426; 93005; 93306; 93970; 94640; 96372; 96374; 96375; 96376; C9113; G0378; J1100; J1815; J2405

== ENCOUNTER 2024-06-01 13:34 | Emergency (ER) | payer OTHER, MEDICAID ==
[~2024-06-01] VITALS: Ht 152.4 cm; Wt 112.3 kg
[~2024-06-01 13:34] MED LIST changes: -ACLI1AER2 IN; +ACLI400A5 IN; +BUDE1AER4 PO; -GLIP5TAB12 PO; +GLIP5TAB21 PO
[2024-06-01] MEDS: HYDROcodone-ACET 10/325MG TAB PO ONE (17:37)
[2024-06-01] MEDS ORDERED: HYDR-4798 PO (17:42)
[2024-06-01 18:07] VITALS: BP 133/62; PULSE 59; RESP 18; O2SAT 98
== END 2024-06-01 18:09 | disposition home or self-care (01) ==
LOC: ER 13:34
DX: M51.16 Intervertebral disc disorders with radiculopathy, lumbar region (principal); J44.9 Chronic obstructive pulmonary disease, unspecified; E11.9 Type 2 diabetes mellitus without complications; I10 Essential (primary) hypertension; Z79.01 Long term (current) use of anticoagulants; Z79.51 Long term (current) use of inhaled steroids; Z79.84 Long term (current) use of oral hypoglycemic drugs; Z79.890 Hormone replacement therapy; Z79.899 Other long term (current) drug therapy; Z88.6 Allergy status to analgesic agent; Z90.49 Acquired absence of other specified parts of digestive tract; Z90.710 Acquired absence of both cervix and uterus; Z95.0 Presence of cardiac pacemaker; Z98.890 Other specified postprocedural states; Z87.891 Personal history of nicotine dependence; Z91.040 Latex allergy status
CPT/HCPCS: 72100